=== PATIENT | female | born 1950 | race Caucasian/White ===

== ENCOUNTER 2022-04-15 14:56 | Emergency (ER) | payer MEDICARE, OTHER ==
[2022-04-15 16:09] LABS: ANION GAP 15.4 mmol/L (5-15)
[2022-04-15 16:22] LABS: RESPIRATORY SYNCYTIAL VIR NAA NEGATIVE (NEGATIVE)
[2022-04-15 16:24] LABS: CORONAVIRUS COVID-19 NAA POSITIVE (NEGATIVE)
[2022-04-15] MEDS ORDERED: Acetaminophen 325 MG Tab PO ONE (18:17)
== END 2022-04-15 18:27 | disposition short-term general hospital (02) ==
LOC: VM.ED 14:56
DX: U07.1 COVID-19 (principal); E11.22 Type 2 diabetes mellitus with diabetic chronic kidney disease; I12.9 Hypertensive chronic kidney disease with stage 1 through stage 4 chronic kidney disease, or unspecified chronic kidney disease; N18.4 Chronic kidney disease, stage 4 (severe); E03.9 Hypothyroidism, unspecified; J90 Pleural effusion, not elsewhere classified; Z88.1 Allergy status to other antibiotic agents; Z91.013 Allergy to seafood; Z91.041 Radiographic dye allergy status; Z88.8 Allergy status to other drugs, medicaments and biological substances; Z79.82 Long term (current) use of aspirin; Z79.899 Other long term (current) drug therapy; Z79.4 Long term (current) use of insulin; Z20.822 Contact with and (suspected) exposure to COVID-19; W19.XXXA Unspecified fall, initial encounter
CPT/HCPCS: 0241U; 71046; 80053; 81001; 83605; 85025; 99284; 99285; A9270-GY

== ENCOUNTER 2022-08-16 09:36 | Emergency (ER) | payer MEDICARE, OTHER ==
[2022-08-16] MEDS ORDERED: Sodium Chloride 0.9% 10 ML Syringe FLUSH PRN (09:47)
[2022-08-16] MEDS ORDERED: Ondansetron 4 MG/2 ML SDV IVPUSH ONE (10:05)
[2022-08-16 10:11] LABS: BASOPHILS PERCENT AUTO 0.4 % (0.2-1.2); EOSINOPHILS ABSOLUTE AUTO 0.1 x10^3/uL (0.0-0.5); EOSINOPHILS PERCENT AUTO 1.1 % (0.0-4.0); HEMATOCRIT 19.6 % (33.0-47.0); IMMATURE GRAN ABSOLUTE AUTO 0.08 x10^3/uL (0.00-0.07); LYMPHOCYTES ABSOLUTE AUTO 1.6 x10^3/uL (1.0-4.8); LYMPHOCYTES PERCENT AUTO 15.9 % (25.0-50.0); MEAN CORPUSCULAR HEMOGLOBIN 29.2 pg (26.0-32.0); MEAN CORPUSCULAR HGB CONC 33.7 g/dL (32.0-36.0); MEAN CORPUSCULAR VOLUME 86.7 fL (78.0-93.0); MONOCYTES ABSOLUTE AUTO 0.5 x10^3/uL (0.0-0.8); MONOCYTES PERCENT AUTO 5.6 % (2.0-11.0); NEUTROPHILS ABSOLUTE AUTO 7.4 x10^3/uL (1.8-7.7); NEUTROPHILS PERCENT AUTO 76.2 % (50.0-80.0); PLATELET COUNT,PLT 236 x10^3/uL (130-400); RED BLOOD CELL COUNT 2.26 x10^6/uL (4.00-5.50); WHITE BLOOD CELL COUNT,WBC 9.7 x10^3/uL (4.0-10.0)
[2022-08-16 10:14] LABS: HEMOGLOBIN 6.6 g/dL (12.0-16.0)
[2022-08-16] MEDS ORDERED: Sodium Chloride 0.9% 1,000 ML IV SCH (10:15)
[2022-08-16] MEDS ORDERED: Pantoprazole 40 MG Vial IVPUSH ONE (10:17)
[2022-08-16 10:29] LABS: INR 0.9 (2.0-3.5); PROTHROMBIN TIME 10.1 SEC (9.5-12.2); PTT,PARTIAL THROMBOPLSTIN TIME 24.5 SEC (23.6-33.6)
[2022-08-16 10:31] LABS: A/G RATIO 0.68; ALANINE AMINOTRANSFERASE,ALT 23 U/L (14-59); ALBUMIN 2.1 g/dL (3.4-5.0); ALKALINE PHOSPHATASE 70 U/L (46-116); ASPARTATE AMNIOTRANSFERASE,AST 23 U/L (15-37); BILIRUBIN TOTAL 0.4 mg/dL (0.2-1.0); BLOOD UREA NITROGEN,BUN 50 mg/dL (7-18); CALCIUM 8.3 mg/dL (8.5-10.1); CARBON DIOXIDE,CO2 26 mmol/L (21-32); CHLORIDE,CL 101 mmol/L (98-107); GLUCOSE RANDOM 121 mg/dL (70-99); MAGNESIUM 1.9 mg/dL (1.8-2.4); PROTEIN TOTAL,TP 5.2 g/dL (6.4-8.2); SODIUM,NA 143 mmol/L (136-145)
[2022-08-16 10:32] LABS: ANION GAP 18.5 mmol/L (5-15); ESTIMATED GFR 4 mL/min (>=60); POTASSIUM,K 2.5 mmol/L (3.5-5.1)
[2022-08-16 10:33] LABS: CREATININE 9.4 mg/dL (0.55-1.02)
[2022-08-16 10:34] LABS: LACTIC ACID 1.7 mmol/L (0.4-2.0)
[2022-08-16] MEDS ORDERED: Potassium Chloride Riders 20 MEQ in Premix Bag 1 BAG IV ONE (10:34)
[2022-08-16] MEDS ORDERED: Carvedilol 12.5 MG Tab PO ONE (11:26)
[2022-08-16] MEDS ORDERED: levETIRAcetam 500 MG Tab PO ONE (11:29)
== END 2022-08-16 15:46 | disposition short-term general hospital (02) ==
LOC: VM.ED 09:36
DX: D63.1 Anemia in chronic kidney disease (principal); I12.9 Hypertensive chronic kidney disease with stage 1 through stage 4 chronic kidney disease, or unspecified chronic kidney disease; E11.22 Type 2 diabetes mellitus with diabetic chronic kidney disease; N18.9 Chronic kidney disease, unspecified; D50.0 Iron deficiency anemia secondary to blood loss (chronic); E87.6 Hypokalemia; R56.9 Unspecified convulsions; K21.9 Gastro-esophageal reflux disease without esophagitis; Z88.8 Allergy status to other drugs, medicaments and biological substances; J45.909 Unspecified asthma, uncomplicated; Z88.1 Allergy status to other antibiotic agents; Z91.041 Radiographic dye allergy status; Z91.013 Allergy to seafood; Z79.82 Long term (current) use of aspirin; Z79.899 Other long term (current) drug therapy
CPT/HCPCS: 36415; 70450; 74022; 80053; 80177; 83605; 83735; 84100; 85025; 85610; 85730; 87040; 93005; 96361; 96365; 96375; 99285-25; A9270-GY; C9113; J2405; J3480; J7030